=== PATIENT | male | born 1960 | race African-American/Black ===

== ENCOUNTER 2024-05-06 10:48 | Emergency (ER) | payer SELFPAY ==
[~2024-05-06] VITALS: Ht 172.7 cm; Wt 72.1 kg
[2024-05-06 10:59] VITALS: O2SAT 96
[2024-05-06 11:02] VITALS: BP 139/94; PULSE 98; RESP 18; TEMP 98; O2SAT 99
[2024-05-06] MEDS: KETOROLAC 30MG/ML VIAL IM STA (12:40)
[2024-05-06] MEDS ORDERED: CELE100C MT (13:45)
== END 2024-05-06 14:05 | disposition home or self-care (01) ==
LOC: ER 10:48
DX: S20.219A Contusion of unspecified front wall of thorax, initial encounter (principal); Z98.890 Other specified postprocedural states; X58.XXXA Exposure to other specified factors, initial encounter; Y93.89 Activity, other specified; Y92.89 Other specified places as the place of occurrence of the external cause; Y99.8 Other external cause status
CPT/HCPCS: 99283; 71045; 96372; J1885